=== PATIENT | male | born 1985 | race Caucasian/White ===

== ENCOUNTER 2022-04-07 12:49 | Emergency (ER) | payer OTHER ==
[2022-04-07 13:41] LABS: RED BLOOD COUNT 4.86 M/UL (4.20-5.50); WHITE BLOOD COUNT 11.8 K/UL (4.5-11.0)
[2022-04-07 14:04] LABS: BUN/CREATININE RATIO 10 (0-10)
[2022-04-07] MEDS ORDERED: ZOFRAN ODT 4 MG4 MG PO (19:00)
[2022-04-07] MEDS ORDERED: PERCOCET 5-3251 EACH PO (19:00)
== END 2022-04-07 19:33 | disposition home or self-care (01) ==
LOC: ER1 12:49
PROVIDERS: Family Medicine
DX: N13.2 Hydronephrosis with renal and ureteral calculous obstruction (principal); Z21 Asymptomatic human immunodeficiency virus [HIV] infection status; E78.5 Hyperlipidemia, unspecified; F17.200 Nicotine dependence, unspecified, uncomplicated
CPT/HCPCS: 80048; 81001; 85025; 87086; 96374; 96375; 99284; J1885; J2270; J2405

== ENCOUNTER 2022-04-24 20:09 | Emergency (ER) | payer OTHER ==
[~2022-04-24 20:09] MED LIST: PERCOCET 5-3251 EACH PO; ZOFRAN ODT 4 MG4 MG PO
[2022-04-24 20:55] LABS: HEMOGLOBIN 16.1 gm/dl (14.0-17.5); RED BLOOD COUNT 4.86 M/UL (4.20-5.50)
[2022-04-24 21:27] LABS: BUN/CREATININE RATIO 11 (0-10)
[2022-04-24] MEDS ORDERED: HYDROCODON-ACE1 EAC4 PO (22:36)
== END 2022-04-24 22:40 | disposition home or self-care (01) ==
LOC: ER1 20:09
PROVIDERS: Student in an Organized Health Care Education/Training Program
DX: N20.1 Calculus of ureter (principal); F17.210 Nicotine dependence, cigarettes, uncomplicated
CPT/HCPCS: 80053; 81001; 85025; 93005; 96374; 96375; 96376; 99284; J1885; J2270; J7030